=== PATIENT | female | born 1940 | race African-American/Black ===

== ENCOUNTER → 2016-09-06 | Outpatient (CLI) | payer MEDICARE, OTHER ==
[2015-06-27 21:10] VITALS: BP 213/99
[~2016-09-06] MED LIST: ASPI81TA9 PO; ATOR40TA59 PO; ENOX100D SQ; Enoxaparin Sodium SQ; HYDR-971 PO; ONDA4TAB10 SL; WARF1TAB PO; WARF5TAB PO
--- NOTE | 2016-09-06 13:08 | RAD ---
CT scan of the chest without contrast 09/06/2016 Clinical history: History of lung nodule. Technique: Unenhanced, contiguous, 3 mm axial sections were obtained through the chest and upper abdomen. One or more of the following individualized dose reduction techniques were utilized for this study: 1. Automated exposure control. 2. Adjustment of the mA and/or kV according to patient size. 3. Use of iterative reconstruction technique. Findings: Comparison study is dated 09/08/2015. Moderate atherosclerotic calcification of the thoracic aorta and its branches is noted. The thoracic aorta is tortuous but tapers normally. The heart is mildly enlarged. A 1.5 cm calcified lymph node node is seen in the AP window of the mediastinum. Small calcified hilar lymph nodes are seen. Mild emphysematous changes are seen involving both lungs. A 5 mm nodular opacity is seen involving the left lower lobe, unchanged. A 4 mm nodular opacity is seen involving the inferior aspect of the right upper lobe, unchanged. A 3 mm nodular opacity is seen involving the right middle lobe, unchanged. No new pulmonary nodule is seen. No area of consolidation is noted. No pleural effusion or pneumothorax is seen. Images through the upper abdomen demonstrate a 1.3 cm low-attenuation lesion involving the superior pole of the left kidney. This likely represents a cyst. Atherosclerotic calcification of the abdominal aorta is seen. Scattered diverticula are seen involving the colon. Impression: Stable CT appearance of the small nodules involving both lungs. No new pulmonary nodule is seen.
== END | disposition home or self-care (01) ==
LOC: CT 08:04
PROVIDERS: ATTEND Internal Medicine Pulmonary Disease
DX: R91.8 Other nonspecific abnormal finding of lung field (principal)
CPT/HCPCS: 71250

== ENCOUNTER → 2016-09-27 | Outpatient (CLI) | payer MEDICARE, OTHER ==
[2015-06-27 21:10] VITALS: BP 213/99
--- NOTE | 2016-09-27 17:07 | RAD ---
DATE: 09/27/2016 EXAM: MAMMO JONATHON SCREENING BILATERAL HISTORY: Routine screening COMPARISON: 09/26/2015 This study was interpreted with the benefit of Computerized Aided Detection (CAD). FINDINGS: 2-D and 3-D tomosynthesis imaging was performed in CC and MLO projections. The breasts are primarily fatty replaced. No new or enlarging breast densities are seen. Benign type calcifications are present. No suspicious microcalcifications have developed. IMPRESSION: Stable mammograms without evidence of malignancy. BI-RADS CATEGORY: 2 BENIGN FINDING(S) RECOMMENDED FOLLOW-UP: 12M 12 MONTH FOLLOW-UP PQRS compliance statement: Patient information was entered into a reminder system with a target due date for the next mammogram. Mammography is a sensitive method for finding small breast cancers, but it does not detect them all and is not a substitute for careful clinical examination. A negative mammogram does not negate a clinically suspicious finding and should not result in delay in biopsying a clinically suspicious abnormality. "Our facility is accredited by the [employer] Mammography [employer]."
== END | disposition home or self-care (01) ==
LOC: MAMMO 13:38
PROVIDERS: ATTEND Physician Assistant
DX: Z12.31 Encounter for screening mammogram for malignant neoplasm of breast (principal)
CPT/HCPCS: 77063; G0202; 77067

== ENCOUNTER → 2017-09-28 | Outpatient (CLI) | payer MEDICARE, OTHER ==
[2015-06-27 21:10] VITALS: BP 213/99
[~2017-09-28] MED LIST changes: +ASPI-612 PO; -ASPI81TA9 PO; +WARF-78 PO; -WARF1TAB PO; +WARF1TAB74 PO; -WARF5TAB PO
--- NOTE | 2017-09-28 13:04 | RAD ---
DATE: 09/28/2017 EXAM: MAMMO JONATHON SCREENING BILATERAL HISTORY: Routine screening COMPARISON: 09/27/2016 This study was interpreted with the benefit of Computerized Aided Detection (CAD). The breast parenchyma shows scattered fibroglandular densities. Breast parenchyma level B. FINDINGS: 2-D and 3-D tomosynthesis imaging was performed in CC and MLO projections. No new or enlarging breast densities are seen. Benign type calcifications are present. No suspicious microcalcifications have developed. IMPRESSION: Stable mammograms without evidence of malignancy. BI-RADS CATEGORY: 2 BENIGN FINDING(S) RECOMMENDED FOLLOW-UP: 12M 12 MONTH FOLLOW-UP PQRS compliance statement: Patient information was entered into a reminder system with a target due date for the next mammogram. Mammography is a sensitive method for finding small breast cancers, but it does not detect them all and is not a substitute for careful clinical examination. A negative mammogram does not negate a clinically suspicious finding and should not result in delay in biopsying a clinically suspicious abnormality. "Our facility is accredited by the [employer] Mammography [employer]."
== END | disposition home or self-care (01) ==
LOC: MAMMO 10:52
PROVIDERS: ATTEND Physician Assistant
DX: Z12.31 Encounter for screening mammogram for malignant neoplasm of breast (principal); E78.5 Hyperlipidemia, unspecified; E78.00 Pure hypercholesterolemia, unspecified
CPT/HCPCS: 77063; 77067

== ENCOUNTER 2018-01-29 05:42 | Emergency (ER) | payer MEDICARE, OTHER ==
[~2018-01-29] VITALS: Ht 167.6 cm; Wt 92.5 kg
--- NOTE | 2018-01-29 06:22 | PHYS DOC ---
Past History Past Medical History: CAD, DVT, High Cholesterol Past Surgical History: Cholecystectomy, Tonsillectomy Smoking: Non-smoker Alcohol Use: None Drug Use: None Adult General Chief Complaint Chief Complaint: BLOODY STOOL HPI HPI Patient is a 77-year-old -[place] female who presents to the emergency department for evaluation. She states that since 4 AM this morning, she has had 3 episodes of dark bloody stools. She states that when she came to the emergency department she did feel somewhat dizzy and lightheaded. She has not had any pain. She denies any shortness of breath or chest pain, numbness or focal weakness. She takes warfarin for prior history of DVT about 4 years ago, and states that she has not had any cardiac problems in the past, and has not had a pulmonary embolism. She is uncertain why she has been kept on warfarin the swelling. She denies any abdominal pain, nausea, or vomiting. There are no alleviating, or exacerbating factors to her symptoms. Review of Systems Review of Systems Constitutional: Denies fever or chills [] Eyes: Denies change in visual acuity, redness, or eye pain [] HENT: Denies nasal congestion or sore throat [] Respiratory: Denies cough or shortness of breath [] Cardiovascular: The patient denies any shortness of breath, chest pain, palpitations, or orthopnea[] GI: Denies abdominal pain, nausea, vomiting, or diarrhea [] : Denies dysuria or hematuria [] Musculoskeletal: Denies back pain or joint pain [] Integument: Denies rash or skin lesions [] Neurologic: Denies headache, focal weakness or sensory changes [] Endocrine: Denies polyuria or polydipsia [] All other systems were reviewed and found to be within normal limits, except as documented in this note. Allergies Allergies Allergies Coded Allergies Type Severity Reaction Last Updated Verified I S O L A T I O N *CONTACT* Allergy Unknown 03/19/15 No NKMA Allergy Unknown 03/19/15 No Physical Exam Physical Exam PHYSICAL EXAM: CONSTITUTIONAL: Well developed, well nourished HEAD: normocephalic, atraumatic EENT: PERRL, EOMI. Conjunctivae appear mildly pale, sclerae non-icteric; moist mucous membranes. NECK: Supple, non-tender; no meningismus. LUNGS: Lungs CTA, breathing even and unlabored. Normal air movement. HEART: Irregularly irregular rhythm, there is a soft systolic murmur. CHEST: No deformity; non-tender ABDOMEN: The abdomen is soft, and non-tender, no masses or bruits. EXTREM: Normal ROM; no deformity, no calf tenderness. Normal pulses palpable in all extremities. There is no pedal edema. SKIN: No rash; no diaphoresis NEURO: Alert; normal speech and cognition; CN's grossly intact; strength grossly intact without focal deficit. BACK: No CVA TTP. RECTAL EXAM: There is maroon stool present on rectal exam. Current Patient Data Lab Results Laboratory Tests Test 01/29/18 06:20 01/29/18 06:27 Stool Occult Blood Positive White Blood Count 7.6 x10^3/uL Red Blood Count 4.73 x10^6/uL Hemoglobin 12.2 g/dL Hematocrit 38.0 % Mean Corpuscular Volume 80 fL Mean Corpuscular Hemoglobin 26 pg Mean Corpuscular Hemoglobin Concent 32 g/dL Red Cell Distribution Width 16.1 % Platelet Count 186 x10^3/uL Neutrophils (%) (Auto) 64 % Lymphocytes (%) (Auto) 27 % Monocytes (%) (Auto) 7 % Eosinophils (%) (Auto) 1 % Basophils (%) (Auto) 1 % Neutrophils # (Auto) 4.9 x10^3uL Lymphocytes # (Auto) 2.1 x10^3/uL Monocytes # (Auto) 0.5 x10^3/uL Eosinophils # (Auto) 0.1 x10^3/uL Basophils # (Auto) 0.1 x10^3/uL Prothrombin Time 25.8 SEC Prothromb Time International Ratio 2.7 Activated Partial Thromboplast Time 35 SEC Sodium Level 142 mmol/L Potassium Level 3.9 mmol/L Chloride Level 108 mmol/L Carbon Dioxide Level 25 mmol/L Anion Gap 9 Blood Urea Nitrogen 19 mg/dL Creatinine 1.1 mg/dL Estimated GFR (Cockcroft-Gault) 58.1 Glucose Level 119 mg/dL Calcium Level 8.7 mg/dL Current Medications Medications (Trade) Dose Ordered Sig/Kentrell Route PRN Reason Start Time Stop Time Status Last Admin Dose Admin Sodium Chloride 1,000 ml @ 100 mls/hr Q10H IV 01/29/18 06:30 01/29/18 16:29 Pantoprazole Sodium 80 mg/ Sodium Chloride 100 ml @ 10 mls/hr 1X ONCE IV 01/29/18 07:00 01/29/18 16:59 Phytonadione 5 mg/ Sodium Chloride 50.5 ml @ 101 mls/hr 1X ONCE IV 01/29/18 07:30 01/29/18 07:59 UNV Phytonadione 5 mg/ Sodium Chloride 50.5 ml @ 101 mls/hr 1X ONCE IV 01/29/18 07:30 01/29/18 07:59 UNV EKG EKG [Normal sinus rhythm a rate of 62 bpm with occasional APCs, normal axis, normal intervals. There are no acute ischemic ST/T changes.] Radiology/Procedures Radiology/Procedures [] Course & Med Decision Making Course & Med Decision Making * Pertinent Labs and Imaging studies reviewed. (See chart for details) [7:15 AM: The patient's condition remained stable. There is no GI available at this facility, the patient be transferred to [facility]. Dr. Beckham, hospitalist waste minimization technician, has been paged.] 7:25 AM: The patient has been accepted. EMS is available to transport the patient. Due to the delay in administering FFP, the patient will be given vitamin K at this facility, with further reversal of her warfarin taking place after transfer to definitive care. Dragon Disclaimer Dragon Disclaimer This electronic medical record was generated, in whole or in part, using a voice recognition dictation system. Departure Departure: Impression: Primary Impression: GI bleed Additional Impression: Anticoagulated Disposition: 02 XFER [facility] (R [facility]) Condition: STABLE Referrals: LUIS ENRIQUE MAR (PCP) Problem Qualifiers REAGAN YANES MD Jan 29, 2018 06:22
[2018-01-29] MEDS ORDERED: IV NORMAL SALINE 1,000ML 1,000 ML IV SCH (06:30)
--- NOTE | 2018-01-29 06:41 | EKG ---
[address] [address] Test Date: 2018-01-29 Test Time: 06:40:09 Pat Name: YOLANDA DEL CASTILLO Department: Room: Gender: F Steel Tier: : 1940 Requested By: REAGAN YANES Order Number: [id number] Reading MD: Carlito Mendez MD Measurements Intervals [place] Rate: 62 P: 49 [place]: 146 QRS: 10 QRSD: 80 T: 21 QT: 430 QTc: 439 Interpretive Statements SINUS RHYTHM ATRIAL PREMATURE COMPLEX(ES) Electronically Signed On 01-31-2018 12:08:08 CDT by Carlito Mendez MD
[2018-01-29 06:50] LABS: BASO # 0.1 x10^3/uL (0.0-0.2); BASO % 1 % (0-3); EOS # 0.1 x10^3/uL (0.0-0.7); EOS % 1 % (0-3); HEMOGLOBIN 12.2 g/dL (12.0-15.5); LYMPH # 2.1 x10^3/uL (1.0-4.8); LYMPH % 27 % (24-48); MEAN CORPUSCULAR HEMOGLOBIN 26 pg (25-35); MEAN CORPUSCULAR HGB CONC 32 g/dL (31-37); MEAN CORPUSCULAR VOLUME 80 fL (79-100); MONO # 0.5 x10^3/uL (0.0-1.1); MONO % 7 % (0-9); NEUT # 4.9 x10^3uL (1.8-7.7); NEUT % 64 % (31-73); PLATELET COUNT 186 x10^3/uL (140-400); RED BLOOD COUNT 4.73 x10^6/uL (3.50-5.40); RED CELL DISTRIBUTION WIDTH 16.1 % (11.5-14.5); WHITE BLOOD COUNT 7.6 x10^3/uL (4.0-11.0)
[2018-01-29 06:51] LABS: FECAL OB PT POSITIVE (NEG)
[2018-01-29 06:57] LABS: CALCIUM 8.7 mg/dL (8.5-10.1); CREATININE 1.1 mg/dL (0.6-1.0); GFR 58.1; POTASSIUM 3.9 mmol/L (3.5-5.1)
[2018-01-29] MEDS ORDERED: PANTOPRAZOLE IV 80 MG in IV NORMAL SALINE 100ML 100 ML IV ONE (07:00)
[2018-01-29] MEDS ORDERED: ASPI325T8 PO (07:30)
[2018-01-29] MEDS ORDERED: [UNRECOGNIZED DRUG - OTHER] IV ONE (07:30)
[2018-01-29] MEDS ORDERED: TRAM50TA PO (07:30)
[2018-01-29] MEDS ORDERED: NORMAL SALINE IV ONE (07:30)
[2018-01-29] MEDS ORDERED: PHYTONADIONE for IVPB 5 MG in IV NORMAL SALINE 50ML 50 ML IV ONE (07:30)
[2018-01-29] MEDS ORDERED: PANTOPRAZOLE IV 40 MG VIAL. ONE (07:38)
[2018-01-29] MEDS ORDERED: IV NORMAL SALINE 100ML 100 ML ONE (07:39)
[2018-01-29 07:48] VITALS: BP 148/93
== END 2018-01-29 08:00 | disposition short-term general hospital (02) ==
LOC: ER 05:42
DX: K92.2 Gastrointestinal hemorrhage, unspecified (principal); Z79.01 Long term (current) use of anticoagulants; I25.10 Atherosclerotic heart disease of native coronary artery without angina pectoris; E78.00 Pure hypercholesterolemia, unspecified; Z86.718 Personal history of other venous thrombosis and embolism; Z90.49 Acquired absence of other specified parts of digestive tract; Z91.041 Radiographic dye allergy status
CPT/HCPCS: 36415; 80048; 82274; 85025; 85610; 85730; 86850; 86900; 86901; 93005; 96365; 96375; 99285; C9113; J3430; J7030

== ENCOUNTER 2018-07-07 18:08 | Emergency (ER) | payer MEDICARE, OTHER ==
[~2018-07-07] VITALS: Ht 170.2 cm; Wt 95.7 kg
[~2018-07-07 18:08] MED LIST changes: +ASPI325T8 PO; +HYDR-3165 PO; -HYDR-971 PO; +TRAM50TA PO
[2018-07-07] MEDS ORDERED: 0.9 % SODIUM CHLORIDE 10 ML DISP.SYRIN. IV PRN (18:30)
--- NOTE | 2018-07-07 18:34 | PHYS DOC ---
Past History Past Medical History: CAD, DVT, GI Bleed, High Cholesterol Past Surgical History: Cholecystectomy, Tonsillectomy Smoking: Non-smoker Alcohol Use: None Drug Use: None Adult General Chief Complaint Chief Complaint: LOWER EXTREMITY SWELLING HPI HPI Patient is a 78 year old female who presents with complaint of bilateral lower shimmery swelling. Patient states her symptoms have been worsening over the past week. Denies any history of similar symptoms. Patient states that she did not come to the emergency department as the weather has been bad. Denies any associated chest pain but does admit to shortness of breath with exertion. Patient has had history of DVT and recently was admitted at [facility] for treatment of GI bleed in January 2018. At that time she was taken off blood thinners. Currently not on any anticoagulation. Denies any associated fever. Has not taken any medications for her symptoms. Currently not on any water diuretics. Review of Systems Review of Systems Constitutional: Denies fever or chills [] Eyes: Denies change in visual acuity, redness, or eye pain [] HENT: Denies nasal congestion or sore throat [] Respiratory: Dyspnea on exertion, denies cough[] Cardiovascular: Dyspnea on exertion, lower extremity edema, denies chest pain or orthopnea[] GI: Denies abdominal pain, nausea, vomiting, bloody stools or diarrhea [] : Denies dysuria or hematuria [] Musculoskeletal: Denies back pain or joint pain [] Integument: Denies rash or skin lesions [] Neurologic: Denies headache, focal weakness or sensory changes [] All other systems were reviewed and found to be within normal limits, except as documented in this note. Current Medications Current Medications Current Medications Medications (Trade) Dose Ordered Sig/Kentrell Start Time Stop Time Status Last Admin Dose Admin Sodium Chloride (Normal Saline Flush) 10 ml QSHIFT PRN 07/07/18 18:30 UNV Allergies Allergies Allergies Coded Allergies Type Severity Reaction Last Updated Verified I S O L A T I O N *CONTACT* Allergy Unknown 03/19/15 No NKMA Allergy Unknown 03/19/15 No Physical Exam Physical Exam Constitutional: Alert, afebrile, no acute distress. [] HENT: Normocephalic, atraumatic, bilateral external ears normal, oropharynx moist, no oral exudates, nose normal. [] Eyes: PERRLA, EOMI, conjunctiva normal, no discharge. [] Neck: Normal range of motion, no tenderness, supple, no stridor. [] Cardiovascular: Normal rate, irregular rhythm, grade 2/6 systolic ejection murmur heard best along left sternal border. [] Lungs & Thorax: Bilateral breath sounds clear to auscultation [] Abdomen: Bowel sounds normal, soft, no tenderness, no masses, no pulsatile masses. [] Skin: Warm, dry, no erythema, no rash. [] Back: No tenderness, no CVA tenderness. [] Extremities: No tenderness, no cyanosis, no clubbing, ROM intact, 2+ pitting edema in the bilateral lower extremities extending just inferior to knees bilaterally. [] Neurologic: Alert and oriented X 3, normal motor function, normal sensory function, no focal deficits noted. [] Current Patient Data Vital Signs Vital Signs Date Time Temp Pulse Resp B/P (MAP) Pulse Ox O2 Delivery O2 Flow Rate FiO2 07/07/18 18:10 97.7 92 20 97 Room Air EKG EKG Interpreted by me: Heart rate 69, sinus rhythm, normal intervals, normal axis, occasional PVCs, no acute ST elevations or depressions[] Radiology/Procedures Radiology/Procedures One view AP chest x-ray interpreted by me: No infiltrate, no effusions, normal cardiac silhouette [address] [address] IMAGING REPORT Signed PATIENT: YOLANDA DEL CASTILLO ACCOUNT: [id number] : 1940 LOCATION: ER AGE: 78 SEX: F EXAM STATUS: REG ER ORD. PHYSICIAN: COLEMAN SMALLWOOD MD REASON: bilateral lower extremity edema, hx of dvt PROCEDURE: VENOUS LOWER EXT BILATERAL Bilateral lower extremity venous Doppler. HISTORY: Bilateral lower extremity edema, history of DVT Real-time imaging, color flow imaging and Doppler with augmentation were utilized to evaluate the veins of the lower extremities. The common femoral vein is incompletely compressible with intraluminal thrombus consistent with venous thrombosis. There is thrombus throughout the right lower extremity. The femoral vein, popliteal vein, deep femoral vein are all noncompressible without flow. Calf veins also show enlargement without flow and without compression consistent with venous thrombosis. The left common femoral vein, femoral and deep femoral veins were all compressible and have flow with color imaging on the left side. The popliteal vein on the left is incompletely compressible with partial venous thrombosis. There is still flow with color imaging. Calf veins have flow with color imaging on the left. IMPRESSION: 1. Extensive deep venous thrombosis right lower extremity. 2. Partial venous thrombosis left popliteal vein. Electronically signed by: Jose Eduardo Del Toro MD (07/07/2018 8:42 PM) [facility] DICTATED AND SIGNED BY: JOSE EDUARDO DEL TORO MD DATE: 07/07/182039 CC: COLEMAN SMALLWOOD MD; LUIS ENRIQUE MAR ~ [] Course & Med Decision Making Course & Med Decision Making Pertinent Labs and Imaging studies reviewed. (See chart for details) Patient found to have a panic was a thrombus in the right lower extremity starting at the common femoral vein and extending through to the lower leg and calf veins. Given patient's recent history of GI bleeding, initiation of blood thinner therapy carries high risk of rebleeding. The patient's condition may benefit from interventional radiology evaluation and placement of IVC filter. This is not available at [facility]. After speaking with the patient, we have agreed to transfer patient to [facility] for further evaluation and treatment. I spoke with Dr. Hooper, hospitalist, who agreed with plan of care and is accepting care of patient for transfer. Spoke with patient regarding plan of care and she is in agreement at time of disposition.[] Dragon Disclaimer Dragon Disclaimer This electronic medical record was generated, in whole or in part, using a voice recognition dictation system. Departure Departure: Impression: Primary Impression: Lower leg DVT (deep venous thromboembolism), acute Additional Impression: History of GI bleed Disposition: XFER [facility] Condition: STABLE Referrals: LUIS ENRIQUE MAR (PCP) Problem Qualifiers Primary Impression: Lower leg DVT (deep venous thromboembolism), acute Laterality: right Qualified Codes: I82.4Z1 - Acute embolism and thrombosis of unspecified deep veins of right distal lower extremity COLEMAN SMALLWOOD MD Jul 07, 2018 18:34
[2018-07-07 19:10] LABS: BASO # 0.1 x10^3/uL (0.0-0.2); BASO % 1 % (0-3); EOS # 0.1 x10^3/uL (0.0-0.7); EOS % 2 % (0-3); HEMATOCRIT 37.3 % (36.0-47.0); HEMOGLOBIN 11.7 g/dL (12.0-15.5); LYMPH # 1.3 x10^3/uL (1.0-4.8); LYMPH % 20 % (24-48); MEAN CORPUSCULAR HEMOGLOBIN 23 pg (25-35); MEAN CORPUSCULAR HGB CONC 31 g/dL (31-37); MEAN CORPUSCULAR VOLUME 74 fL (79-100); MONO # 0.5 x10^3/uL (0.0-1.1); MONO % 8 % (0-9); NEUT # 4.2 x10^3uL (1.8-7.7); NEUT % 68 % (31-73); PLATELET COUNT 198 x10^3/uL (140-400); RED BLOOD COUNT 5.06 x10^6/uL (3.50-5.40); RED CELL DISTRIBUTION WIDTH 19.7 % (11.5-14.5); WHITE BLOOD COUNT 6.1 x10^3/uL (4.0-11.0)
[2018-07-07 19:36] LABS: ALBUMIN 3.4 g/dL (3.4-5.0); ALBUMIN/GLOBULIN RATIO 1.1 (1.0-1.7); CALCIUM 9.2 mg/dL (8.5-10.1); GFR 64.7; TOTAL BILIRUBIN 0.3 mg/dL (0.2-1.0); TOTAL PROTEIN 6.6 g/dL (6.4-8.2)
--- NOTE | 2018-07-07 20:47 | RAD ---
Bilateral lower extremity venous Doppler. HISTORY: Bilateral lower extremity edema, history of DVT Real-time imaging, color flow imaging and Doppler with augmentation were utilized to evaluate the veins of the lower extremities. The common femoral vein is incompletely compressible with intraluminal thrombus consistent with venous thrombosis. There is thrombus throughout the right lower extremity. The femoral vein, popliteal vein, deep femoral vein are all noncompressible without flow. Calf veins also show enlargement without flow and without compression consistent with venous thrombosis. The left common femoral vein, femoral and deep femoral veins were all compressible and have flow with color imaging on the left side. The popliteal vein on the left is incompletely compressible with partial venous thrombosis. There is still flow with color imaging. Calf veins have flow with color imaging on the left. IMPRESSION: 1. Extensive deep venous thrombosis right lower extremity. 2. Partial venous thrombosis left popliteal vein. Electronically signed by: Jose Eduardo Del Toro MD (07/07/2018 8:42 PM) [facility]
[2018-07-07 21:47] VITALS: BP 228/83
--- NOTE | 2018-07-08 06:15 | EKG ---
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
--- NOTE | 2018-07-09 07:39 | RAD ---
CHEST PA LATERAL CLINICAL INDICATION: Lower extremity swelling, dyspnea on exertion COMPARISON: None FINDINGS: Heart is normal in size. Lungs are clear. No pneumothorax or pleural effusion. Visualized bony thorax is within normal limits. Impression: No acute pulmonary process. Electronically signed by: Aram Collier DO (07/09/2018 7:35 AM) [facility]
== END 2018-07-07 21:52 | disposition short-term general hospital (02) ==
LOC: ER 18:08
DX: I82.4Z3 Acute embolism and thrombosis of unspecified deep veins of distal lower extremity, bilateral (principal); R06.09 Other forms of dyspnea; K92.2 Gastrointestinal hemorrhage, unspecified; I25.10 Atherosclerotic heart disease of native coronary artery without angina pectoris; E78.00 Pure hypercholesterolemia, unspecified; Z86.718 Personal history of other venous thrombosis and embolism; Z91.041 Radiographic dye allergy status
CPT/HCPCS: 36415; 71046; 80053; 82553; 83735; 83880; 84484; 85025; 93005; 93970; 99285-25

== ENCOUNTER → 2018-09-29 | Outpatient (CLI) | payer MEDICARE, OTHER ==
--- NOTE | 2018-09-29 12:23 | RAD ---
DATE: 09/29/2018 EXAM: MAMMO JONATHON SCREENING BILATERAL HISTORY: Routine screening COMPARISON: 09/28/2017 This study was interpreted with the benefit of Computerized Aided Detection (CAD). Breast Density: SCATTERED The breast parenchyma shows scattered fibroglandular densities. Breast parenchyma level B. FINDINGS: 2-D and 3-D tomosynthesis imaging was performed in CC and MLO projections. No new or enlarging breast densities are seen. Benign calcifications are present. No suspicious microcalcifications are evident. IMPRESSION: Stable mammograms without evidence of malignancy. BI-RADS CATEGORY: 2 BENIGN FINDING(S) RECOMMENDED FOLLOW-UP: 12M 12 MONTH FOLLOW-UP PQRS compliance statement: Patient information was entered into a reminder system with a target due date for the next mammogram. Mammography is a sensitive method for finding small breast cancers, but it does not detect them all and is not a substitute for careful clinical examination. A negative mammogram does not negate a clinically suspicious finding and should not result in delay in biopsying a clinically suspicious abnormality. "Our facility is accredited by the [employer] Mammography Program."
== END | disposition home or self-care (01) ==
LOC: MAMMO 10:34
PROVIDERS: ATTEND Physician Assistant
DX: Z12.31 Encounter for screening mammogram for malignant neoplasm of breast (principal); R92.1 Mammographic calcification found on diagnostic imaging of breast
CPT/HCPCS: 77063; 77067

== ENCOUNTER 2019-11-09 09:42 | Emergency (ER) | payer MEDICARE, OTHER ==
[~2019-11-09] VITALS: Ht 170.2 cm; Wt 92.5 kg
[~2019-11-09 09:42] MED LIST changes: -WARF-78 PO; +WARF1TAB2 PO; -WARF1TAB74 PO; +WARF5TAB2 PO
[2019-11-09] MEDS ORDERED: IV NORMAL SALINE 1,000ML 1,000 ML IV SCH (10:11)
[2019-11-09 10:53] LABS: BASO % 1 % (0-3); EOS # 0.1 x10^3/uL (0.0-0.7); EOS % 2 % (0-3); HEMATOCRIT 37.3 % (36.0-47.0); HEMOGLOBIN 11.8 g/dL (12.0-15.5); LYMPH # 1.3 x10^3/uL (1.0-4.8); LYMPH % 22 % (24-48); MEAN CORPUSCULAR HEMOGLOBIN 26 pg (25-35); MEAN CORPUSCULAR HGB CONC 32 g/dL (31-37); MEAN CORPUSCULAR VOLUME 81 fL (79-100); MONO # 0.5 x10^3/uL (0.0-1.1); MONO % 8 % (0-9); NEUT # 4.1 x10^3uL (1.8-7.7); NEUT % 68 % (31-73); PLATELET COUNT 194 x10^3/uL (140-400); RED BLOOD COUNT 4.62 x10^6/uL (3.50-5.40); RED CELL DISTRIBUTION WIDTH 16.1 % (11.5-14.5)
[2019-11-09 10:59] LABS: CALCIUM 8.8 mg/dL (8.5-10.1); CREATININE 0.9 mg/dL (0.6-1.0); GFR 72.9; POTASSIUM 4.3 mmol/L (3.5-5.1)
[2019-11-09 11:05] LABS: ALBUMIN 3.3 g/dL (3.4-5.0); TOTAL BILIRUBIN 0.3 mg/dL (0.2-1.0); TOTAL PROTEIN 6.5 g/dL (6.4-8.2)
[2019-11-09 11:08] LABS: BACTERIA,URINE MANY /HPF (0-FEW); BILIRUBIN,URINE NEG (NEG); CLARITY,URINE CLEAR; COLOR,URINE YELLOW; GLUCOSE,URINE NEG (NEG); NITRITE,URINE POS (NEG); RBC,URINE RARE /HPF (0-2); SQUAMOUS EPITHELIAL CELL,UR MOD /LPF; UROBILINOGEN,URINE 0.2 mg/dL (0.2 mg/dL); WBC,URINE OCC /HPF (0-4)
[2019-11-09] MEDS ORDERED: IOHEXOL 350 MG/ML 100 ML VIAL. IV ONE (11:45)
--- NOTE | 2019-11-09 12:31 | RAD ---
CT scan of the pelvis with contrast 11/09/2019 CLINICAL HISTORY: Vaginal bleeding. TECHNIQUE: After the intravenous administration of 75 cc of Omnipaque 350 only, contiguous, 5 mm axial sections were obtained through the pelvis. One or more of the following individualized dose reduction techniques were utilized for this study: 1. Automated exposure control. 2. Adjustment of the mA and/or kV according to patient size. 3. Use of iterative reconstruction technique. FINDINGS: Atherosclerotic calcification of the distal abdominal aorta and its branches is noted. The urinary bladder is distended with urine. The uterus is heterogeneous which likely reflects diffuse fibroid involvement. A 1.4 cm calcified fibroid is seen involving the anterior aspect of the lower uterine segment. No adnexal mass is seen. No free fluid is noted. Scattered diverticula are seen involving the sigmoid colon. No inflammatory changes are seen in the adjacent fat. An oval-shaped mass is seen within the deep subcutaneous fat of the right anterolateral abdominal wall anterior to the abdominal wall musculature. This measures 6.6 cm in greatest diameter. Its CT appearance is nonspecific. It could represent a seroma or possibly a fibroma. Multiple diverticula are seen involving the sigmoid colon. No inflammatory changes are seen in the adjacent fat. No free fluid is seen. No pelvic or inguinal lymphadenopathy is noted. Degenerative changes involving the lower lumbar spine along with both SI joints and both hips. IMPRESSION: Fibroid uterus. No acute abnormality is seen. Electronically signed by: Antoine Peterson MD (11/09/2019 12:28 PM) [id number]
--- NOTE | 2019-11-09 12:46 | PHYS DOC ---
Past History Past Medical History: CAD, DVT, GI Bleed, High Cholesterol Past Surgical History: Cholecystectomy, Tonsillectomy Smoking: Non-smoker Alcohol Use: None Drug Use: None General Adult EDM: Chief Complaint: VAGINAL BLEEDING HPI: HPI: 79 year female presents with history of intermittent vaginal bleeding that has been ongoing for "a long time...years". Patient reports typically will have a day where she has a few blood clots come out and then it self resolves. Reports she has not ever told her doctor about it. Reports her bleeding this episode has been more than normal and lasting a few days. Denies trauma. Denies other discharge. Denies fever/chills. Reports she take Xarelto. Reports she also has been following with Urology for a mass on her kidney. Reports she recently underwent CT imaging last week for her mass and has an appointment with her urologist on 11/19/19 to go over the results. Review of Systems: Review of Systems: Constitutional: Denies fever or chills Eyes: Denies change in visual acuity or eye pain HENT: Denies nasal congestion or sore throat Respiratory: Denies cough or shortness of breath Cardiovascular: Denies chest pain or palpitations GI: Denies abdominal pain, nausea, or vomiting /[facility]: Reports suprapubic pressure and vaginal bleeding/clots Musculoskeletal: Denies back pain or joint pain Integument: Denies rash or skin lesions Neurologic: Denies headache, focal weakness or sensory changes Complete systems were reviewed and found to be within normal limits, except as documented in this note. Current Medications: Current Meds: Current Medications Medications (Trade) Dose Ordered Sig/Kentrell Start Time Stop Time Status Last Admin Dose Admin Ceftriaxone Sodium 1 gm/ Sodium Chloride 50 ml @ 100 mls/hr 1X ONCE 11/09/19 12:45 11/09/19 13:14 UNV Iohexol (Omnipaque 350 Mg/ml) 75 ml 1X ONCE 11/09/19 11:45 11/09/19 11:57 DC 11/09/19 11:53 75 ML Sodium Chloride 1,000 ml @ 1,000 mls/hr Q1H 11/09/19 10:11 11/09/19 11:10 DC 11/09/19 10:49 1,000 MLS/HR Allergies: Allergies: Allergies Coded Allergies Type Severity Reaction Last Updated Verified I S O L A T I O N *CONTACT* Allergy Unknown 03/19/15 No NKMA Allergy Unknown 03/19/15 No Physical Exam: PE: Constitutional: Well developed, well nourished, no acute distress, non-toxic appearance HENT: Normocephalic, atraumatic Eyes: Conjunctiva normal, no discharge Neck: Normal range of motion, no tenderness, supple Lungs & Thorax: No respiratory distress, equal chest rise and fall Abdomen: Soft, no tenderness, no guarding/rebound tenderness/distention Skin: Warm, dry, no erythema 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, small amount of clotted blood noted in vaginal vault, no CMT Extremities: No tenderness, ROM intact, no edema Neurologic: Alert and oriented X 3, no focal deficits noted Psychologic: Affect normal, judgement normal Current Patient Data: Labs: Laboratory Tests Test 11/09/19 10:29 11/09/19 10:33 Urine Collection Type Unknown Urine Color Yellow Urine Clarity Clear Urine pH 5.0 Urine Specific [place] 1.025 Urine Protein Neg (NEG-TRACE) Urine Glucose (UA) Neg mg/dL (NEG) Urine Ketones (Stick) Neg mg/dL (NEG) Urine Blood Small (NEG) Urine Nitrite Pos (NEG) Urine Bilirubin Neg (NEG) Urine Urobilinogen Dipstick 0.2 mg/dL (0.2 mg/dL) Urine Leukocyte Esterase Neg (NEG) Urine RBC Rare /HPF (0-2) Urine WBC Occ /HPF (0-4) Urine Squamous Epithelial Cells Mod /LPF Urine Bacteria Many /HPF (0-FEW) White Blood Count 6.0 x10^3/uL (4.0-11.0) Red Blood Count 4.62 x10^6/uL (3.50-5.40) Hemoglobin 11.8 g/dL (12.0-15.5) L Hematocrit 37.3 % (36.0-47.0) Mean Corpuscular Volume 81 fL (79-100) Mean Corpuscular Hemoglobin 26 pg (25-35) Mean Corpuscular Hemoglobin Concent 32 g/dL (31-37) Red Cell Distribution Width 16.1 % (11.5-14.5) H Platelet Count 194 x10^3/uL (140-400) Neutrophils (%) (Auto) 68 % (31-73) Lymphocytes (%) (Auto) 22 % (24-48) L Monocytes (%) (Auto) 8 % (0-9) Eosinophils (%) (Auto) 2 % (0-3) Basophils (%) (Auto) 1 % (0-3) Neutrophils # (Auto) 4.1 x10^3uL (1.8-7.7) Lymphocytes # (Auto) 1.3 x10^3/uL (1.0-4.8) Monocytes # (Auto) 0.5 x10^3/uL (0.0-1.1) Eosinophils # (Auto) 0.1 x10^3/uL (0.0-0.7) Basophils # (Auto) 0.0 x10^3/uL (0.0-0.2) Prothrombin Time 10.2 SEC (9.4-11.4) Prothrombin Time INR 1.0 (0.9-1.1) Activated Partial Thromboplast Time 28 SEC (23-33) Sodium Level 144 mmol/L (136-145) Potassium Level 4.3 mmol/L (3.5-5.1) Chloride Level 109 mmol/L (98-107) H Carbon Dioxide Level 26 mmol/L (21-32) Anion Gap 9 (6-14) Blood Urea Nitrogen 20 mg/dL (7-20) Creatinine 0.9 mg/dL (0.6-1.0) Estimated GFR (Cockcroft-Gault) 72.9 BUN/Creatinine Ratio 22 (6-20) H Glucose Level 99 mg/dL (70-99) Calcium Level 8.8 mg/dL (8.5-10.1) Total Bilirubin 0.3 mg/dL (0.2-1.0) Aspartate Amino Transferase (AST) 23 U/L (15-37) Alanine Aminotransferase (ALT) 16 U/L (14-59) Alkaline Phosphatase 69 U/L (46-116) Total Protein 6.5 g/dL (6.4-8.2) Albumin 3.3 g/dL (3.4-5.0) L Albumin/Globulin Ratio 1.0 (1.0-1.7) Vital Signs: Vital Signs Date Time Temp Pulse Resp B/P (MAP) Pulse Ox O2 Delivery O2 Flow Rate FiO2 11/09/19 09:58 98.7 67 16 146/37 (73) 98 Room Air EKG: EKG: [] Radiology/Procedures: Radiology/Procedures: PROCEDURE: CT PELVIS W/CONTRAST CT scan of the pelvis with contrast 11/09/2019 CLINICAL HISTORY: Vaginal bleeding. TECHNIQUE: After the intravenous administration of 75 cc of Omnipaque 350 only, contiguous, 5 mm axial sections were obtained through the pelvis. One or more of the following individualized dose reduction techniques were utilized for this study: 1. Automated exposure control. 2. Adjustment of the mA and/or kV according to patient size. 3. Use of iterative reconstruction technique. FINDINGS: Atherosclerotic calcification of the distal abdominal aorta and its branches is noted. The urinary bladder is distended with urine. The uterus is heterogeneous which likely reflects diffuse fibroid involvement. A 1.4 cm calcified fibroid is seen involving the anterior aspect of the lower uterine segment. No adnexal mass is seen. No free fluid is noted. Scattered diverticula are seen involving the sigmoid colon. No inflammatory changes are seen in the adjacent fat. An oval-shaped mass is seen within the deep subcutaneous fat of the right anterolateral abdominal wall anterior to the abdominal wall musculature. This measures 6.6 cm in greatest diameter. Its CT appearance is nonspecific. It could represent a seroma or possibly a fibroma. Multiple diverticula are seen involving the sigmoid colon. No inflammatory changes are seen in the adjacent fat. No free fluid is seen. No pelvic or inguinal lymphadenopathy is noted. Degenerative changes involving the lower lumbar spine along with both SI joints and both hips. IMPRESSION: Fibroid uterus. No acute abnormality is seen. Electronically signed by: Antoine Peterson MD (11/09/2019 12:28 PM) [id number] Course & Med Decision Making: Course & Med Decision Making Pertinent Labs and Imaging studies reviewed. (See chart for details) Elderly patient presents with postmenopausal bleeding. Reports has been ongoing intermittently for several years but this episode was worse than normal. Patient currently on Xarelto and with history of known kidney mass for which she recently had repeat imaging this last week. Discussed case with RN for patient's urologist- Dr. Robles. Reports patient has mass that has been stable they are following. Reports patient has had CT abd (without pelvis) with and without contrast yearly since 2016. Mass has remained stable so no biopsy was ever performed. RN confirms that recent imaging does not include pelvis and no notation regarding uterus/cervix/ovaries was documented. Pelvic exam performed. Small clot noted in vaginal vault which was removed. NO significant active bleeding noted. No signs of infection. Wet mount negative. Labs obtained and posted to chart. H/H stable. UA with signs of infection. Empiric antibiotic initiated. CT pelvis with findings consistent for fibroid uterus. Patient stable for discharge with outpatient follow-up with PCP/[facility]NEY[facility]ILLWR[facility]. [facility] referral provided. Discussed findings and plan with patient, who acknowledges understanding and agreement. Varsha Disclaimer: Varsha Disclaimer: This electronic medical record was generated, in whole or in part, using a voice recognition dictation system. Departure Departure: Impression: Primary Impression: Abnormal vaginal bleeding in postmenopausal patient Additional Impressions: Uterine fibroid Qualified Codes: D25.9 - Leiomyoma of uterus, unspecified Urinary tract infection Qualified Codes: N30.00 - Acute cystitis without hematuria Disposition: HOME/RESIDENCE PRIOR TO ADM Condition: STABLE Referrals: LUIS ENRIQUE MAR (PCP) Patient Instructions: Abnormal Uterine Bleeding, Fibroids, [id number], Urinary Tract Infection, [id number] Scripts Cephalexin (KEFLEX) 500 Mg Capsule 1 CAP PO TID for UTI for 7 Days, #21 CAP 0 Refills Prov: ANGIE VILLEDA DO 11/09/19 Justification of Admission: Justification of Admission: Justification of Admission Dx: N/A ANGIE VILLEDA DO Nov 09, 2019 12:46
[2019-11-09] MEDS ORDERED: cefTRIAXone SODIUM 1 GM VIAL ONE (12:54)
[2019-11-09] MEDS ORDERED: IV NORMAL SALINE 50ML 50 ML ONE (12:54)
[2019-11-09 13:02] VITALS: BP 159/98
[2019-11-09] MEDS ORDERED: CEPH-264 PO (14:14)
[2019-11-12 18:07] LABS: CHLAMYDIA PROBE Negative (Negative)
== END 2019-11-09 13:53 | disposition home or self-care (01) ==
LOC: ER 09:42
DX: D25.9 Leiomyoma of uterus, unspecified (principal); N30.00 Acute cystitis without hematuria; N93.8 Other specified abnormal uterine and vaginal bleeding; N95.0 Postmenopausal bleeding; I25.10 Atherosclerotic heart disease of native coronary artery without angina pectoris; E78.00 Pure hypercholesterolemia, unspecified; Z86.718 Personal history of other venous thrombosis and embolism; Z90.49 Acquired absence of other specified parts of digestive tract; Z91.041 Radiographic dye allergy status
CPT/HCPCS: 72193; 80053; 81001; 85025; 85610; 85730; 87086; 87491; 87591; 96361; 96365; 99285; J0696; Q0111; Q9967; 36415; J7030

== ENCOUNTER → 2019-11-20 | Outpatient (CLI) | payer MEDICARE, OTHER ==
[2019-11-09 13:02] VITALS: BP 159/98
[~2019-11-20] MED LIST changes: +CEPH-264 PO
--- NOTE | 2019-11-21 12:25 | RAD ---
DATE: 11/20/2019 2:11 PM EXAM: MAMMO JONATHON SCREENING BILATERAL HISTORY: Screening COMPARISON: 09/29/2018, 09/28/2017 Bilateral CC and MLO views of the breasts were performed. Bilateral breast tomosynthesis was performed in CC and MLO projections. This study was interpreted with the benefit of Computerized Aided Detection (CAD). FINDINGS: Breast Density: FATTY The Breast Parenchyma is primarily fatty replaced. Breast parenchyma level density A. No suspicious masses, microcalcifications or architectural distortion is present to suggest malignancy in either breast. The visualized axillae are unremarkable. IMPRESSION: No mammographic evidence of malignancy. BI-RADS CATEGORY: 1 NEGATIVE RECOMMENDED FOLLOW-UP: 12M 12 MONTH FOLLOW-UP Annual screening mammography is recommended, unless clinically indicated sooner based on symptoms or change in physical exam. PQRS compliance statement: Patient information was entered into a reminder system with a target due date 11/20/2020 for the next mammogram. Mammography is a sensitive method for finding small breast cancers, but it does not detect them all and is not a substitute for careful clinical examination. A negative mammogram does not negate a clinically suspicious finding and should not result in delay in biopsying a clinically suspicious abnormality. "Our facility is accredited by the [employer] Mammography Program."
== END | disposition home or self-care (01) ==
LOC: MAMMO 13:23
PROVIDERS: ATTEND Physician Assistant
DX: Z12.31 Encounter for screening mammogram for malignant neoplasm of breast (principal)
CPT/HCPCS: 77063; 77067

== ENCOUNTER → 2019-11-21 | Outpatient (CLI) | payer MEDICARE, OTHER ==
[2019-11-09 13:02] VITALS: BP 159/98
--- NOTE | 2019-11-21 13:13 | RAD ---
EXAM: DUAL ENERGY X-RAY ABSORPTIOMETRY (DEXA). HISTORY: Postmenopausal screening. FINDINGS: The lowest measured T-score is -1.0 in the right femoral neck, based on a bone mineral density of 0.895 g/cm^2. Refer to the worksheets for full detail. No comparison examinations are available. IMPRESSION: Normal. Bone mineral density yields a T-score of -1.0 or greater. Fracture risk is low. FRAX was not calculated. METHODOLOGY: Dual energy x-ray absorptiometry was performed to measure bone mineral density. The following analysis is based on the 2019 Official Positions of the International Society for Clinical Densitometry: Measurements of the hips and the average of L1-L4 are preferred. When the spine and/or hip cannot be feasibly measured or interpreted, or in the setting of hyperparathyroidism, distal radial bone mineral density may be measured. The lumbar spine T-score is based on the average bone mineral density of L1-L4. In the setting of artifact or anatomic abnormality, some lumbar levels may be excluded, and the remaining levels used for calculation. A single lumbar level is not used for diagnosis, and if only a single level is available for assessment, another anatomic site will be used to assign a diagnosis. The hip T-score is based on the bone mineral density measurement of the femoral neck or total proximal femur of either side, whichever is lowest. Bilateral mean values are not used for diagnosis. The forearm T-score is derived from 33% of the distal radius of the nondominant forearm. For postmenopausal and perimenopausal women, and men age 50 or older, of all ethnic groups, T-scores are calculated through comparison of the current measurement with the NHANES III database standard for females aged 20-29 years. The lowest T-score of the evaluated anatomic sites is used to assign a diagnosis based on the World Health Organization densitometric classification. In premenopausal females and males younger than age 50, a Z-score is calculated based on population specific reference data for patient sex and self-reported ethnicity. Electronically signed by: Jazzmine Tripathi MD (11/21/2019 1:10 PM) [id number]
== END | disposition home or self-care (01) ==
LOC: DXRAD 11:25
PROVIDERS: ATTEND Physician Assistant
DX: M85.88 Other specified disorders of bone density and structure, other site (principal)
CPT/HCPCS: 77081

== ENCOUNTER 2020-01-10 21:56 | Emergency (ER) | payer MEDICARE, OTHER ==
[~2020-01-10] VITALS: Ht 170.2 cm; Wt 92.5 kg
[~2020-01-10 21:56] MED LIST changes: -ASPI-612 PO; +ASPI-889 PO
--- NOTE | 2020-01-10 22:32 | PHYS DOC ---
Past History Past Medical History: CAD, DVT, GI Bleed, High Cholesterol Past Surgical History: Cholecystectomy, Tonsillectomy Smoking: Non-smoker Alcohol Use: None Drug Use: None Adult General Chief Complaint Chief Complaint: RECTAL BLEED HPI HPI Patient is a 79-year-old female who presents for rectal bleeding. Onset was first noticed this morning when taking a bowel movement. She reports taking a bowel movement which was loose in nature and reports nearly all contents of evacuated bowel matter were dark red, bloody, with some clots apparent. This was painless with roughly 8 ounces of bloody fecal matter expelled. Patient went on about her day, continued to be asymptomatic and had separate episode later this evening of similar quantity prompting her to seek care at our ER for further management. Patient reports taking Xarelto in outpatient setting for history of blood clots. She reports recently being seen and evaluated at our facility October 2019 for fibroid bleeding, she was discharged but failed to follow-up in outpatient setting with [facility] [employer]. She does admit history of GI bleed in the past and reports going to [facility] often for this. Reports last colonoscopy was 1 year ago, denies any history of polyps, diverticula or other abnormal findings. Review of Systems Review of Systems Denies headache, lightheadedness, fever, chills, chest pain, shortness of breath, abdominal pain, urinary symptoms, vaginal bleeding or discharge, recent COVID-19 symptoms or contact Fourteen body systems of review of systems have been reviewed. See HPI for pertinent positives and negative responses, other hodges all other systems are negative, non-pertinent or non-contributory Allergies Allergies Allergies Coded Allergies Type Severity Reaction Last Updated Verified I S O L A T I O N *CONTACT* Allergy Unknown 03/19/15 No NKMA Allergy Unknown 03/19/15 No Physical Exam Physical Exam Constitutional: Well developed, well nourished, no acute distress, non-toxic appearance. HENT: Normocephalic, atraumatic, bilateral external ears normal, oropharynx moist, no oral exudates, nose normal. Eyes: PERRLA, EOMI, conjunctiva normal, no discharge. Neck: Normal range of motion, no tenderness, supple, no stridor. Cardiovascular: Heart rate regular, sinus rhythm, no murmurs rubs or gallops Lungs & Thorax: Bilateral breath sounds clear to auscultation Abdomen: Bowel sounds normal, soft, no tenderness, no masses, no pulsatile masses. Nonsurgical abdomen, no peritoneal signs : Rectal exam performed, non-concerning, x1 external hemorrhoid appreciated without any internal hemorrhoids or fissures. Guaiac positive. Pelvic exam also performed, non-concerning external examination, internal vaginal exam ination showed blood with several clots present in vaginal vault, no active/profound sites of bleeding identified, no trauma. Patient wearing depends with large amount of blood in genital area, unsure if true guaiac positive or positive result due to vaginal bleeding Skin: Warm, dry, no erythema, no rash. Back: No tenderness, no CVA tenderness. Extremities: No tenderness, no cyanosis, no clubbing, ROM intact, no edema. Neurologic: Alert and oriented X 3, grossly normal motor & sensory function, no focal deficits noted. Psychologic: Affect normal, judgement normal, mood normal. Current Patient Data Vital Signs Vital Signs Date Time Temp Pulse Resp B/P (MAP) Pulse Ox O2 Delivery O2 Flow Rate FiO2 01/10/20 23:07 98.4 94 20 128/85 (99) 99 Lab Results Laboratory Tests Test 01/10/20 22:15 01/10/20 22:21 White Blood Count 5.9 x10^3/uL Red Blood Count 4.23 x10^6/uL Hemoglobin 10.7 g/dL Hematocrit 34.3 % Mean Corpuscular Volume 81 fL Mean Corpuscular Hemoglobin 25 pg Mean Corpuscular Hemoglobin Concent 31 g/dL Red Cell Distribution Width 15.6 % Platelet Count 183 x10^3/uL Neutrophils (%) (Auto) 67 % Lymphocytes (%) (Auto) 23 % Monocytes (%) (Auto) 8 % Eosinophils (%) (Auto) 1 % Basophils (%) (Auto) 1 % Neutrophils # (Auto) 4.0 x10^3uL Lymphocytes # (Auto) 1.4 x10^3/uL Monocytes # (Auto) 0.5 x10^3/uL Eosinophils # (Auto) 0.1 x10^3/uL Basophils # (Auto) 0.0 x10^3/uL Sodium Level 142 mmol/L Potassium Level 3.6 mmol/L Chloride Level 107 mmol/L Carbon Dioxide Level 27 mmol/L Anion Gap 8 Blood Urea Nitrogen 18 mg/dL Creatinine 1.4 mg/dL Estimated GFR (Cockcroft-Gault) 43.8 BUN/Creatinine Ratio 13 Glucose Level 128 mg/dL Calcium Level 8.2 mg/dL Total Bilirubin 0.3 mg/dL Aspartate Amino Transf (AST/SGOT) 25 U/L Alanine Aminotransferase (ALT/SGPT) 17 U/L Alkaline Phosphatase 74 U/L Total Protein 6.6 g/dL Albumin 3.1 g/dL Albumin/Globulin Ratio 0.9 Stool Occult Blood Positive Current Medications Medications (Trade) Dose Ordered Sig/Kentrell Route PRN Reason Start Time Stop Time Status Last Admin Dose Admin Sodium Chloride 1,000 ml @ 1,000 mls/hr 1X ONCE IV 01/10/20 23:30 01/11/20 00:29 01/10/20 23:43 EKG EKG EKG ordered and interpreted by myself at 2232 hrs. as normal sinus rhythm at 73 bpm, unremarkable intervals, no axis deviation, no ischemic findings, no STEMI Radiology/Procedures Radiology/Procedures [] Course & Med Decision Making Course & Med Decision Making Ambulatory patient seen and evaluated by myself on immediate ER arrival Airway patent, breathing unlabored, vital signs obtained and grossly unremarkable, IV access also obtained Comprehensive history and physical exam obtained with subsequent ordering of pertinent laboratory and diagnostic studies. History somewhat limited by patient's lack of own medical history and dementia History concerning for significant blood loss in area inpatient with Xarelto use Vaginal bleeding confirmed source with recent CTAP obtained 11/17/2019 showing uterine fibroids. Unclear if true guaiac positive and GI bleed and high risk patient given significant blood pooled in her briefs Discussed concerning nature of presenting story and high risk of potential decompensation if discharged home, patient agreeable to admission for further medical management and diagnostic work-up On-call hospitalist, Dr. Adorno, was contacted and case discussed. He agreed need for admission to [facility] where patient could be further manag ed medically with access to GI and [facility] OF [employer] specialties as indicated All questions and concerns addressed with patient prior to departure to [facility] for continued inpatient management and medical care under Dr. Kyree Maddox Disclaimer Varsha Disclaimer This electronic medical record was generated, in whole or in part, using a voice recognition dictation system. Departure Departure: Impression: Primary Impression: Vaginal bleeding Additional Impressions: History of uterine fibroid History of GI bleed Anticoagulant long-term use Acute kidney injury Disposition: 09 ADMITTED INPATIENT (At [facility]) Admitting Physician: Nabeel Adorno (At [facility]) Condition: STABLE Referrals: LUIS ENRIQUE MAR (PCP) Justification of Admission: Justification of Admission: Justification of Admission Dx: Yes (Vaginal bleeding and high risk patient on anticoagulation) Problem Qualifiers NANCY PLASCENCIA DO Jan 10, 2020 22:32
[2020-01-10 22:59] LABS: BASO % 1 % (0-3); EOS # 0.1 x10^3/uL (0.0-0.7); EOS % 1 % (0-3); HEMATOCRIT 34.3 % (36.0-47.0); HEMOGLOBIN 10.7 g/dL (12.0-15.5); LYMPH # 1.4 x10^3/uL (1.0-4.8); LYMPH % 23 % (24-48); MEAN CORPUSCULAR HEMOGLOBIN 25 pg (25-35); MEAN CORPUSCULAR HGB CONC 31 g/dL (31-37); MEAN CORPUSCULAR VOLUME 81 fL (79-100); MONO # 0.5 x10^3/uL (0.0-1.1); MONO % 8 % (0-9); NEUT % 67 % (31-73); PLATELET COUNT 183 x10^3/uL (140-400); RED BLOOD COUNT 4.23 x10^6/uL (3.50-5.40); RED CELL DISTRIBUTION WIDTH 15.6 % (11.5-14.5); WHITE BLOOD COUNT 5.9 x10^3/uL (4.0-11.0)
[2020-01-10 23:07] LABS: CALCIUM 8.2 mg/dL (8.5-10.1); CREATININE 1.4 mg/dL (0.6-1.0); GFR 43.8; POTASSIUM 3.6 mmol/L (3.5-5.1)
[2020-01-10 23:13] LABS: ALBUMIN 3.1 g/dL (3.4-5.0); ALBUMIN/GLOBULIN RATIO 0.9 (1.0-1.7); TOTAL BILIRUBIN 0.3 mg/dL (0.2-1.0); TOTAL PROTEIN 6.6 g/dL (6.4-8.2)
[2020-01-10 23:20] LABS: FECAL OB PT POSITIVE (NEG)
[2020-01-10] MEDS ORDERED: IV NORMAL SALINE 1,000ML 1,000 ML IV ONE (23:30)
[2020-01-11 03:45] LABS: HEMATOCRIT 31.6 % (36.0-47.0); HEMOGLOBIN 9.9 g/dL (12.0-15.5); RED BLOOD COUNT 3.92 x10^6/uL (3.50-5.40); RED CELL DISTRIBUTION WIDTH 15.6 % (11.5-14.5); WHITE BLOOD COUNT 6.2 x10^3/uL (4.0-11.0)
[2020-01-11 03:56] LABS: CALCIUM 7.8 mg/dL (8.5-10.1); CREATININE 1.2 mg/dL (0.6-1.0); GFR 52.3; POTASSIUM 3.7 mmol/L (3.5-5.1)
[2020-01-11] MEDS ORDERED: IV NORMAL SALINE 1,000ML 1,000 ML IV ONE ×4 (06:00→10:00)
--- NOTE | 2020-01-11 06:21 | EKG ---
[address] [address] Test Date: 2020-01-10 Test Time: 22:28:10 Pat Name: YOLANDA DEL CASTILLO Department: Room: Gender: F Steam Gigger: ROLY : 1940 Requested By: NANCY PLASCENCIA Order Number: [id number] Reading MD: Measurements Intervals [place] Rate: 73 P: 42 NM: 158 QRS: 28 QRSD: 82 T: 22 QT: 404 QTc: 449 Interpretive Statements SINUS RHYTHM NORMAL ECG RI6.02 No previous ECG available for comparison
[2020-01-11 07:01] LABS: HEMATOCRIT 31.6 % (36.0-47.0); HEMOGLOBIN 9.9 g/dL (12.0-15.5); RED BLOOD COUNT 3.9 x10^6/uL (3.50-5.40); RED CELL DISTRIBUTION WIDTH 15.7 % (11.5-14.5); WHITE BLOOD COUNT 5.8 x10^3/uL (4.0-11.0)
--- NOTE | 2020-01-11 07:24 | EKG ---
[address] [address] Test Date: 2020-01-11 Test Time: 06:44:39 Pat Name: YOLANDA DEL CASTILLO Department: Room: Gender: F Mental Health Professional: Sander : 1940 Requested By: ALEJANDRO KENNEDY Order Number: [id number] Reading MD: Measurements Intervals [place] Rate: 61 P: 0 TN: 148 QRS: 27 QRSD: 80 T: -12 QT: 452 QTc: 457 Interpretive Statements SINUS RHYTHM ATRIAL PREMATURE COMPLEX(ES) OTHERWISE NORMAL ECG RI6.02 No previous ECG available for comparison
[2020-01-11] MEDS ORDERED: ONDANSETRON PF 4 MG/2 ML VIAL. IVP ONE (09:15)
[2020-01-11] MEDS ORDERED: PANTOPRAZOLE IV 40 MG VIAL. IVP ONE (10:00)
[2020-01-11] MEDS ORDERED: PANTOPRAZOLE IV 40 MG VIAL. ONE (10:03)
[2020-01-11] MEDS ORDERED: PANTOPRAZOLE IV 80 MG in IV NORMAL SALINE 100ML 100 ML IV ONE (10:15)
[2020-01-11 14:05] VITALS: BP 98/55
== END 2020-01-11 14:18 | disposition short-term general hospital (02) ==
LOC: ER 21:56
DX: N93.9 Abnormal uterine and vaginal bleeding, unspecified (principal); D25.9 Leiomyoma of uterus, unspecified; N17.9 Acute kidney failure, unspecified; I25.10 Atherosclerotic heart disease of native coronary artery without angina pectoris; E78.00 Pure hypercholesterolemia, unspecified; Z03.818 Encounter for observation for suspected exposure to other biological agents ruled out; Z86.718 Personal history of other venous thrombosis and embolism; Z79.01 Long term (current) use of anticoagulants; Z90.49 Acquired absence of other specified parts of digestive tract; Z88.8 Allergy status to other drugs, medicaments and biological substances
CPT/HCPCS: 36415; 80048; 80053; 82274; 85018; 85025; 85027; 85610; 85730; 86850; 86900; 86901; 93005; 96361; 96365; 96366; 96375; 96376; 99285; C9113; J2405; J7030; U0003

== ENCOUNTER 2020-04-10 14:37 | Emergency (ER) | payer MEDICARE, OTHER ==
[~2020-04-10] VITALS: Ht 170.2 cm; Wt 92.5 kg
--- NOTE | 2020-04-10 14:59 | PHYS DOC ---
Past History Past Medical History: CAD, DVT, GI Bleed, High Cholesterol (NANCY PLASCENCIA DO) Past Surgical History: Cholecystectomy, Tonsillectomy (NANCY PLASCENCIA DO) Smoking: Non-smoker Alcohol Use: None Drug Use: None (NANCY PLASCENCIA DO) Adult General Chief Complaint Chief Complaint: NAUSEA/VOMITING/DIARRHEA HPI HPI Patient is a 80-year-old female who presents for abdominal pain. She is here with her daughter, states she lives with her 2 sons. History is obtained from a mixture of patient and daughter, both are relatively poor historians regarding patient's actual medical history. Nonetheless, patient reports eating [employer] yesterday evening approximately 6 PM. Patient reports waking up several times throughout the night with abdominal cramping and ultimately got up after being extremely nauseous around 3 AM and suffered an episode of nonbloody nonbilious emesis. Patient then suffered a subsequent episode of nonbloody nonbilious ectasis later in the morning. Generalized abdominal cramping without focal pain or radiation with associated nausea was present all day prompting her to seek care at our ER today. Her last bowel movement was yesterday, admits history of constipation. Patient has a history of cholecystectomy, no other abdominal surgeries. She denies any fever, URI-like symptoms, known COVID-19 contact, chest pain, shortness of breath, urinary symptoms, changes in bladder or bowel function. (NANCY PLASCENCIA DO) Review of Systems Review of Systems Fourteen body systems of review of systems have been reviewed. See HPI for pertinent positives and negative responses, other hodges all other systems are negative, non-pertinent or non-contributory (NANCY PLASCENCIA DO) Allergies Allergies Allergies Coded Allergies Type Severity Reaction Last Updated Verified I S O L A T I O N *CONTACT* Allergy Unknown 03/19/15 No NKMA Allergy Unknown 04/10/20 No (NANCY PLASCENCIA DO) Physical Exam Physical Exam Constitutional: Well developed, well nourished, no acute distress, non-toxic appearance. Clinically dehydrated HENT: Normocephalic, atraumatic, bilateral external ears normal, oropharynx moist, no oral exudates, nose normal. Eyes: PERRLA, EOMI, conjunctiva normal, no discharge. Neck: Normal range of motion, no tenderness, supple, no stridor. Cardiovascular: Heart rate regular, sinus rhythm, no rubs or gallops, 3+ holosystolic murmur Lungs & Thorax: Bilateral breath sounds clear to auscultation Abdomen: Bowel sounds normal, soft, mildly tender to palpation diffusely, guarding present, no rebound, no masses, no pulsatile masses. Nonsurgical abdomen, no peritoneal signs Skin: Warm, dry, no erythema, no rash. Back: No tenderness, no CVA tenderness. Extremities: No tenderness, no cyanosis, no clubbing, ROM intact, trace pedal edema bilaterally Neurologic: Alert and oriented X 3, grossly normal motor & sensory function, no focal deficits noted. Psychologic: Affect normal, judgement normal, mood normal. (NANCY PLASCENCIA DO) Current Patient Data Vital Signs Vital Signs Date Time Temp Pulse Resp B/P (MAP) Pulse Ox O2 Delivery O2 Flow Rate FiO2 04/10/20 14:39 97.7 76 17 162/96 (118) 95 Room Air Lab Results Laboratory Tests Test 04/10/20 15:28 White Blood Count 8.5 x10^3/uL (4.0-11.0) Red Blood Count 5.30 x10^6/uL (3.50-5.40) Hemoglobin 11.1 g/dL (12.0-15.5) Hematocrit 36.7 % (36.0-47.0) Mean Corpuscular Volume 69 fL (79-100) Mean Corpuscular Hemoglobin 21 pg (25-35) Mean Corpuscular Hemoglobin Concent 30 g/dL (31-37) Red Cell Distribution Width 19.0 % (11.5-14.5) Platelet Count 303 x10^3/uL (140-400) Neutrophils (%) (Auto) 85 % (31-73) Lymphocytes (%) (Auto) 9 % (24-48) Monocytes (%) (Auto) 5 % (0-9) Eosinophils (%) (Auto) 0 % (0-3) Basophils (%) (Auto) 1 % (0-3) Neutrophils # (Auto) 7.2 x10^3uL (1.8-7.7) Lymphocytes # (Auto) 0.7 x10^3/uL (1.0-4.8) Monocytes # (Auto) 0.4 x10^3/uL (0.0-1.1) Eosinophils # (Auto) 0.0 x10^3/uL (0.0-0.7) Basophils # (Auto) 0.1 x10^3/uL (0.0-0.2) Platelet Estimate Adequate (ADEQUATE) Hypochromasia Mod Anisocytosis Slight Microcytosis Mod Sodium Level 139 mmol/L (136-145) Potassium Level 4.1 mmol/L (3.5-5.1) Chloride Level 101 mmol/L (98-107) Carbon Dioxide Level 27 mmol/L (21-32) Anion Gap 11 (6-14) Blood Urea Nitrogen 12 mg/dL (7-20) Creatinine 1.2 mg/dL (0.6-1.0) Estimated GFR (Cockcroft-Gault) 52.2 BUN/Creatinine Ratio 10 (6-20) Glucose Level 128 mg/dL (70-99) Calcium Level 9.7 mg/dL (8.5-10.1) Total Bilirubin 0.6 mg/dL (0.2-1.0) Aspartate Amino Transf (AST/SGOT) 32 U/L (15-37) Alanine Aminotransferase (ALT/SGPT) 18 U/L (14-59) Alkaline Phosphatase 102 U/L (46-116) Creatine Kinase 138 U/L (26-192) Troponin I Quantitative < 0.017 ng/mL (0-0.055) Total Protein 7.6 g/dL (6.4-8.2) Albumin 3.8 g/dL (3.4-5.0) Albumin/Globulin Ratio 1.0 (1.0-1.7) (NANCY PLASCENCIA DO) EKG EKG EKG ordered and interpreted by myself 1539 hrs. as sinus rhythm at 72 bpm, un remarkable intervals, no axis deviation, T wave inversions in leads III and aVF, no STEMI (NANCY PLASCENCIA DO) Radiology/Procedures Radiology/Procedures PROCEDURE: CT ABD PELV W/ IV CONTRST ONLY Exam: CT of abdomen and pelvis with contrast INDICATION: Left lower quadrant abdominal pain TECHNIQUE: Sequential axial images through the abdomen and pelvis obtained following the administration of 60 mL of Isovue-370 IV contrast. Sagittal and coronal reformatted images were reconstructed from the axial data and reviewed. Comparisons: None FINDINGS: Heart size is normal. No pericardial effusion. Strandy opacities at dependent portion lungs likely representing atelectasis. No pleural Mild intrahepatic or ductal dilatation. Gallbladder surgically absent. Spleen, pancreas, and adrenals are unremarkable. Gallbladder surgically absent. No perinephric inflammation or hydronephrosis. No renal or ureteral calculi are identified. Bladder is distended and appears thin-walled. Uterus is nonenlarged. No abnormal adnexal mass. Extensive diverticulosis noted in the sigmoid colon without evidence of acute diverticulitis. There is dilated loops of small bowel approximately with wall thickening involving a loop of bowel in midabdomen with abrupt transition to decompressed bowel just distal to this area. Trace free fluid in the pelvis. No free intra-abdominal air. Abdominal aorta has a normal course and caliber. Abdominal vasculature is patent. No enlarged abdominal lymph nodes are identified. No suspicious osseous lesions or acute fractures. IMPRESSION: 1. Findings a small bowel obstruction with abrupt transition in the mid lower abdomen. 2. Diverticulosis without evidence of acute diverticulitis. Exposure: One or more of the following in the visualized dose reduction techniques were utilized for this examination: 1. Automated exposure control 2. Adjustment of the MA and/or KV according to patient size 3. Use of iterative of reconstructive technique Electronically signed by: Christiane Arndt MD (04/10/2020 6:18 PM) [facility] (NANCY PLASCENCIA DO) Heart Score HEART Score for Chest Pain: HEART Score for Chest Pain Response (Comments) Value History Slighlty/Non-Suspicious 0 ECG Normal 0 Age < 45 0 Risk Factors No Risk Factors 0 Troponin < Normal Limit 0 Total 0 Risk Factors: Risk Factors: DM, Current or recent (<one month) smoker, HTN, HLP, family history of CAD, obesity. Risk Scores: Risk Factors: DM, Current or recent (<one month) smoker, HTN, HLP, family history of CAD, obesity. (NANCY PLASCENCIA DO) Course & Med Decision Making Course & Med Decision Making Pertinent Labs and Imaging studies reviewed. (See chart for details) Discussed most likely diagnosis of SBO with patient and daughter. I discussed need for hospital admission and they were amenable. Due to high volume in surrounding areas, patient still pending placement at the time of my shift's end. I discussed case with new physician. Please defer to Dr. Marin's documentation regarding future medical activity/care. (NANCY PLASCENCIA DO) Course & Med Decision Making Patient CT scan does show small bowel obstruction. I talked with Dr. Benz at [facility] and he would like patient transferred there for further care and likely surgery. I spoke with the hospitalist, Dr. Mcallister and he has accepted the patient for transfer. She will go by ambulance. (DENISE MARIN DO) Dragon Disclaimer Dragon Disclaimer This electronic medical record was generated, in whole or in part, using a voice recognition dictation system. (NANCY PLASCENCIA DO) Departure Departure: Impression: Primary Impression: SBO (small bowel obstruction) Disposition: 02 DC/TRF OTHER SHORT TERM HOS (general acute hospital) Admitting Physician: Other ([email or web address]) (NANCY PLASCENCIA DO) Condition: STABLE Referrals: LUIS ENRIQUE MAR (PCP) NANCY PLASCENCIA DO Apr 10, 2020 14:59 DENISE MARIN DO Apr 10, 2020 23:10
[2020-04-10] MEDS ORDERED: IV NORMAL SALINE 500ML 500 ML IV ONE (15:15)
[2020-04-10 15:58] LABS: BASO # 0.1 x10^3/uL (0.0-0.2); BASO % 1 % (0-3); EOS % 0 % (0-3); HEMATOCRIT 36.7 % (36.0-47.0); HEMOGLOBIN 11.1 g/dL (12.0-15.5); LYMPH # 0.7 x10^3/uL (1.0-4.8); LYMPH % 9 % (24-48); MEAN CORPUSCULAR HEMOGLOBIN 21 pg (25-35); MEAN CORPUSCULAR HGB CONC 30 g/dL (31-37); MEAN CORPUSCULAR VOLUME 69 fL (79-100); MONO # 0.4 x10^3/uL (0.0-1.1); MONO % 5 % (0-9); NEUT # 7.2 x10^3uL (1.8-7.7); NEUT % 85 % (31-73); PLATELET COUNT 303 x10^3/uL (140-400); WHITE BLOOD COUNT 8.5 x10^3/uL (4.0-11.0)
[2020-04-10] MEDS ORDERED: ONDANSETRON PF 4 MG/2 ML VIAL. IVP ONE ×2 (16:00→19:30)
[2020-04-10 16:05] LABS: CALCIUM 9.7 mg/dL (8.5-10.1); CREATININE 1.2 mg/dL (0.6-1.0); GFR 52.2; POTASSIUM 4.1 mmol/L (3.5-5.1)
[2020-04-10 16:12] LABS: ALBUMIN 3.8 g/dL (3.4-5.0); TOTAL BILIRUBIN 0.6 mg/dL (0.2-1.0); TOTAL PROTEIN 7.6 g/dL (6.4-8.2)
[2020-04-10 17:31] LABS: ANISOCYTOSIS SLIGHT; HYPOCHROMIA MOD; MICROCYTOSIS MOD; PLT ESTIMATE ADEQUATE (ADEQUATE)
[2020-04-10] MEDS ORDERED: IOHEXOL 300 MG/ML 75 ML VIAL. IV ONE (17:45)
--- NOTE | 2020-04-10 18:21 | RAD ---
Exam: CT of abdomen and pelvis with contrast INDICATION: Left lower quadrant abdominal pain TECHNIQUE: Sequential axial images through the abdomen and pelvis obtained following the administration of 60 mL of Isovue-370 IV contrast. Sagittal and coronal reformatted images were reconstructed from the axial data and reviewed. Comparisons: None FINDINGS: Heart size is normal. No pericardial effusion. Strandy opacities at dependent portion lungs likely representing atelectasis. No pleural Mild intrahepatic or ductal dilatation. Gallbladder surgically absent. Spleen, pancreas, and adrenals are unremarkable. Gallbladder surgically absent. No perinephric inflammation or hydronephrosis. No renal or ureteral calculi are identified. Bladder is distended and appears thin-walled. Uterus is nonenlarged. No abnormal adnexal mass. Extensive diverticulosis noted in the sigmoid colon without evidence of acute diverticulitis. There is dilated loops of small bowel approximately with wall thickening involving a loop of bowel in midabdomen with abrupt transition to decompressed bowel just distal to this area. Trace free fluid in the pelvis. No free intra-abdominal air. Abdominal aorta has a normal course and caliber. Abdominal vasculature is patent. No enlarged abdominal lymph nodes are identified. No suspicious osseous lesions or acute fractures. IMPRESSION: 1. Findings a small bowel obstruction with abrupt transition in the mid lower abdomen. 2. Diverticulosis without evidence of acute diverticulitis. Exposure: One or more of the following in the visualized dose reduction techniques were utilized for this examination: 1. Automated exposure control 2. Adjustment of the MA and/or KV according to patient size 3. Use of iterative of reconstructive technique Electronically signed by: Christiane Arndt MD (04/10/2020 6:18 PM) [facility]
[2020-04-10 18:35] VITALS: BP 111/61
[2020-04-10] MEDS ORDERED: MORPHINE SULFATE 2 MG/ML DISP.SYRIN. IV ONE (18:45)
[2020-04-10] MEDS ORDERED: MORPHINE SULFATE 4 MG/ML DISP.SYRIN. IV ONE (19:30)
--- NOTE | 2020-04-12 13:24 | EKG ---
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
== END 2020-04-10 23:10 | disposition short-term general hospital (02) ==
LOC: ER 14:37
DX: K56.609 Unspecified intestinal obstruction, unspecified as to partial versus complete obstruction (principal); R11.2 Nausea with vomiting, unspecified; I25.10 Atherosclerotic heart disease of native coronary artery without angina pectoris; E78.00 Pure hypercholesterolemia, unspecified; Z86.718 Personal history of other venous thrombosis and embolism; Z90.49 Acquired absence of other specified parts of digestive tract; Z88.8 Allergy status to other drugs, medicaments and biological substances
CPT/HCPCS: 36415; 74177; 80053; 82550; 83605; 84484; 85025; 93005; 96374; 96375; 99285; J2270; J2405; J7040; Q9967; 96361

== ENCOUNTER 2020-05-12 18:27 | Emergency (ER) | payer MEDICARE, OTHER ==
[~2020-05-12] VITALS: Ht 167.6 cm; Wt 81.0 kg
--- NOTE | 2020-05-12 18:34 | PHYS DOC ---
Past History Past Medical History: CAD, CHF, CVA, Dementia, DVT, GI Bleed, High Cholesterol, Hypertension, TIA Past Surgical History: Cholecystectomy, Tonsillectomy Past Surgical History Endarterectomy Smoking: Non-smoker Alcohol Use: None Drug Use: None General Adult HPI: HPI: ".. Last week during physical therapy.. I got dizzy and had to drink some orange juice.. I did vomit....they family wanted me to get checked out.. Patient is a 80 year old female who presents with above hx and complaints dizziness, weakness, vomiting, since last week. Onset of symptoms occurred du [facility] physical therapy.. Patient denies any changes in meds. Patient denies any recent travel or specific ill contacts. Patient normally follows with Zelda for care. Patient has past medical history of coronary artery disease, DVTs, GI bleeds, high cholesterol, peripheral vascular disease, and arthritis. Patient has a past significant surgical history of left carotid endarterectomy, tonsillectomy, sigmoid scopes for diverticulitis, cholecystectomy, and bilateral cataract extraction. Pt has had left ankle fracture open reduction and internal fixation. Patient follows with Zelda for care. No history recent travel. No specific ill contacts. Did have a recent abdomen surgery for small bowel obstruction at [facility] 04/10/20. admission. Pt currently getting PT from that post surgical weakness admission.. Pt. daughter Cherie- [phone]. Review of Systems: Review of Systems: Constitutional: Denies fever or chills Eyes: Denies change in visual acuity HENT: Denies nasal congestion or sore throat Respiratory: Hx of shortness of breath Cardiovascular: Denies chest pain or edema GI: Complains of nausea, vomiting, : Denies dysuria Musculoskeletal: Denies back pain or joint pain Integument: Denies rash Neurologic: Complains of generalized weakness., Complaints of dizziness Endocrine: Denies polyuria or polydipsia Lymphatic: Denies swollen glands Psychiatric: Denies depression or anxiety Family History: Family History: Noncontributory to presentation Current Medications: Current Meds: See nursing for home meds Allergies: Allergies: Allergies Coded Allergies Type Severity Reaction Last Updated Verified I S O L A T I O N *CONTACT* Allergy Unknown 03/19/15 No NKMA Allergy Unknown 04/10/20 No Physical Exam: PE: Constitutional: no acute distress, non-toxic appearance. [] HENT: Normocephalic, atraumatic, bilateral external ears normal, oropharynx mois t, no oral exudates, nose normal. [] Eyes: PERRLA, EOMI, conjunctiva normal, no discharge. [] Neck: Normal range of motion, no tenderness, supple, no stridor. Left endarterectomy scar Cardiovascular: Tachycardia Heart rate regular rhythm, no murmur [] PMI to left Lungs & Thorax: Bilateral breath sounds equal apex on auscultation [] Abdomen: Bowel sounds normal, soft, no tenderness, no masses, no pulsatile masses. Old surgery scars. New midline surgery scar Skin: Warm, dry, no erythema, no rash. Poor turgor Back: No tenderness, no CVA tenderness. [] Extremities: No tenderness, no cyanosis, no clubbing, ROM intact, no edema. Left lower leg weakness since previous CVA . Neurologic: Alert and oriented X 3, moves all extremities on request, has decreased sensory feet, left-sided weakness-chronic, no new focal deficits n oted. Arthritic changes. Peripheral neuropathy Psychologic: Affect normal, judgement normal, mood normal. [] EKG: EKG: My interpretation EKG shows a sinus rhythm at 85 bpm. Does have bimodal P waves, left axis, LVH, prolonged QT interval of 422 ms and a QTc interval of 508 ms. Will obtain most recent EKG for comparison .[] 05/12/2020 1857 minutes There is an overall morphology change of EKG tonight as compared to the EKG completed 04/10/2020 Radiology/Procedures: Radiology/Procedures: [address] [address] IMAGING REPORT Signed PATIENT: YOLANDA DEL CASTILLO ACCOUNT: [id number] : 1940 LOCATION: ER AGE: 80 SEX: F EXAM STATUS: REG ER ORD. PHYSICIAN: MICHELLE BAJWA MD REASON: Abdomen pain, dizziness PROCEDURE: ACUTE ABDOMEN SERIES XR ABDOMEN COMP ACUTE INDICATION: Reason: Abdomen pain, dizziness / Spl. Instructions: / History: . COMPARISON STUDY: None. FINDINGS: Lungs: Normal lung volume. No pulmonary mass or consolidation. The tracheobronchial tree and hilar structures are normal. Pleura: No pleural effusion or pneumothorax. Heart and Mediastinum: The cardiomediastinal silhouette is normal. Tortuous atherosclerotic aorta. Abdomen: Nonobstructive bowel gas pattern. No free air. IMPRESSION: 1. No consolidation. 2. Nonobstructive bowel gas pattern. Electronically signed by: Sal Flowers MD (05/12/2020 7:53 PM) [facility] DICTATED AND SIGNED BY: SAL FLOWERS MD DATE: 05/12/201950 CC: MICHELLE BAJWA MD; LUIS ENRIQUE MAR ~MTH0 0 [][place] [address] IMAGING REPORT Signed PATIENT: YOLANDA DEL CASTILLO ACCOUNT: [id number] : 1940 LOCATION: ER AGE: 80 SEX: F EXAM STATUS: REG ER ORD. PHYSICIAN: MICHELLE BAJWA MD REASON: dizzy, hx prior CVA, TIA, accel. htn PROCEDURE: CT HEAD WO CONTRAST CT HEAD/BRAIN WO Date: 05/12/2020 7:21 PM Clinical Indication: Reason: dizzy, hx prior CVA, TIA, accel. htn / Spl. Instructions: / History: Comparison: None. Technique: 5 mm axial tomographic images were obtained of the head without contrast. These were viewed on brain and bone windows. One or more of the following dose reduction techniques were utilized: Automated exposure control (A EC), Adjustment of mA and/or kV according to patient size, Use of iterative reconstruction technique such as ASiR, CT scan done according to ALARA and image gently/image wisely Findings: Moderate generalized cerebral and cerebellar volume loss. Moderate nonspecific periventricular hypoattenuation, most commonly seen with chronic small vessel ischemic disease. Calcified atherosclerosis of the bilateral cavernous and paraclinoid internal carotid arteries and intracranial vertebral arteries. No intra- or extra-axial mass or fluid collection. No acute hemorrhage. The ventricles are normal in size, shape, and morphology. The bermeo-white matter junction is normal. The subarachnoid cisterns are patent. The visualized paranasal sinuses are normal. The visualized portions of the orbits and globes are normal. The mastoid air cells are clear. The drilling foreman topogram shows no lytic lesion or fracture. Impression: No acute intracranial process. Moderate cerebral volume loss. Moderate chronic small vessel ischemic disease. Electronically signed by: Sal Flowers MD (05/12/2020 7:48 PM) [facility] DICTATED AND SIGNED BY: SAL FLOWERS MD DATE: 05/12/201946 CC: MICHELLE BAJWA MD; LUIS ENRIQUE MAR ~MTH0 0 Heart Score: HEART Score for Chest Pain: HEART Score for Chest Pain Response (Comments) Value History Moderately Suspicious 1 ECG Nonspecific Repolarizatio 1 Age > 65 2 Risk Factors 1 or 2 Risk Factors 1 Troponin < Normal Limit 0 Total 5 Risk Factors: Risk Factors: DM, Current or recent (<one month) smoker, HTN, HLP, family history of CAD, obesity. Risk Scores: Score 0 - 3: 2.5% MACE over next 6 weeks - Discharge Home Score 4 - 6: 20.3% MACE over next 6 weeks - Admit for Clinical Observation Score 7 - 10: 72.7% MACE over next 6 weeks - Early Invasive Strategies Course & Med Decision Making: Course & Med Decision Making Pertinent Labs and Imaging studies reviewed. (See chart for details) Discussed labs and tx. plan with DaughterNandini Crespo [phone]. Daughters request pt. be transfer to [facility]. States her cardiology and surgery are there at [facility]. Impression: 1. Dizzy 2. Accelerated hypertension initial readings systolic 208/111 3. Hypomagnesium 1.6 4. Constipation 5. CHF- BMP. 1586 6. Anemia 10.1 Hgb, microcytic hypochromic 68/20 7. Elevated CRP 15.3 [] Dragon Disclaimer: Dragon Disclaimer: This electronic medical record was generated, in whole or in part, using a voice recognition dictation system. Departure Departure: Referrals: LUIS ENRIQUE MAR (PCP) Draglatricia Disclaimer This chart was dictated in whole or in part using Voice Recognition software in a busy, high-work load, and often noisy Emergency Department environment. It may contain unintended and wholly unrecognized errors or omissions. MICHELLE BAJWA MD May 12, 2020 18:34
[2020-05-12] MEDS ORDERED: cloNIDine HCL 0.1 MG TABLET PO ONE (18:45)
[2020-05-12] MEDS ORDERED: cloNIDine TTS-2 1 PATCH PATCH TD ONE (18:45)
[2020-05-12] MEDS ORDERED: IV RINGERS SOLUTION,LACTATED 1,000 ML IV SCH (18:45)
[2020-05-12] MEDS ORDERED: ONDANSETRON PF 4 MG/2 ML VIAL. IVP ONE (19:00)
--- NOTE | 2020-05-12 19:06 | EKG ---
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
[2020-05-12 19:39] LABS: BASO # 0.1 x10^3/uL (0.0-0.2); BASO % 1 % (0-3); EOS # 0.1 x10^3/uL (0.0-0.7); EOS % 2 % (0-3); HEMOGLOBIN 10.1 g/dL (12.0-15.5); LYMPH # 1.9 x10^3/uL (1.0-4.8); LYMPH % 31 % (24-48); MEAN CORPUSCULAR HEMOGLOBIN 20 pg (25-35); MEAN CORPUSCULAR HGB CONC 30 g/dL (31-37); MEAN CORPUSCULAR VOLUME 68 fL (79-100); MONO # 0.5 x10^3/uL (0.0-1.1); MONO % 9 % (0-9); NEUT # 3.5 x10^3uL (1.8-7.7); NEUT % 57 % (31-73); PLATELET COUNT 292 x10^3/uL (140-400); RED CELL DISTRIBUTION WIDTH 20.9 % (11.5-14.5); WHITE BLOOD COUNT 6.1 x10^3/uL (4.0-11.0)
--- NOTE | 2020-05-12 19:50 | RAD ---
CT HEAD/BRAIN WO Date: 05/12/2020 7:21 PM Clinical Indication: Reason: dizzy, hx prior CVA, TIA, accel. htn / Spl. Instructions: / History: Comparison: None. Technique: 5 mm axial tomographic images were obtained of the head without contrast. These were view ed on brain and bone windows. One or more of the following dose reduction techniques were utilized: A utomated exposure control (AEC), Adjustment of mA and/or kV according to patient size, Use of iterati ve reconstruction technique such as ASiR, CT scan done according to ALARA and image gently/image hodges ly Findings: Moderate generalized cerebral and cerebellar volume loss. Moderate nonspecific periventricular hypoat tenuation, most commonly seen with chronic small vessel ischemic disease. Calcified atherosclerosis o f the bilateral cavernous and paraclinoid internal carotid arteries and intracranial vertebral arteri es. No intra- or extra-axial mass or fluid collection. No acute hemorrhage. The ventricles are normal in size, shape, and morphology. The bermeo-white matter junction is normal. The subarachnoid cisterns are patent. The visualized paranasal sinuses are normal. The visualized portions of the orbits and globes are no rmal. The mastoid air cells are clear. The sed high school teacher topogram shows no lytic lesion or fracture. Impression: No acute intracranial process. Moderate cerebral volume loss. Moderate chronic small vessel ischemic disease. Electronically signed by: Nelson Flowers MD (05/12/2020 7:48 PM) [facility]
[2020-05-12 19:52] LABS: CALCIUM 8.8 mg/dL (8.5-10.1); CREATININE 0.9 mg/dL (0.6-1.0); GFR 72.7; POTASSIUM 3.5 mmol/L (3.5-5.1)
--- NOTE | 2020-05-12 19:56 | RAD ---
XR ABDOMEN COMP ACUTE INDICATION: Reason: Abdomen pain, dizziness / Spl. Instructions: / History: . COMPARISON STUDY: None. FINDINGS: Lungs: Normal lung volume. No pulmonary mass or consolidation. The tracheobronchial tree and hilar st ructures are normal. Pleura: No pleural effusion or pneumothorax. Heart and Mediastinum: The cardiomediastinal silhouette is normal. Tortuous atherosclerotic aorta. Abdomen: Nonobstructive bowel gas pattern. No free air. IMPRESSION: 1. No consolidation. 2. Nonobstructive bowel gas pattern. Electronically signed by: Nelson Flowers MD (05/12/2020 7:53 PM) [facility]
[2020-05-12 20:05] LABS: ALBUMIN 3.1 g/dL (3.4-5.0); C REACTIVE PROTEIN 15.3 mg/L (0-3.3); DIRECT BILIRUBIN 0.1 mg/dL (0.0-0.2); MAGNESIUM 1.6 mg/dL (1.8-2.4); TOTAL BILIRUBIN 0.4 mg/dL (0.2-1.0); TOTAL PROTEIN 6.9 g/dL (6.4-8.2)
[2020-05-12] MEDS ORDERED: MAGNESIUM HYDROXIDE 2,400 MG/30 ML ORAL.SUSP. PO ONE (20:15)
[2020-05-12] MEDS ORDERED: FUROSEMIDE 40 MG/4 ML VIAL IVP ONE (20:15)
[2020-05-12 22:03] LABS: POIKILOCYTOSIS SLIGHT
[2020-05-12 22:04] LABS: ANISOCYTOSIS MOD; HYPOCHROMIA MARKED; MICROCYTOSIS MOD
[2020-05-12 22:05] LABS: PLT ESTIMATE ADEQUATE (ADEQUATE)
[2020-05-12 22:15] VITALS: BP 93/48
== END 2020-05-12 22:35 | disposition short-term general hospital (02) ==
LOC: ER 18:27
DX: I11.0 Hypertensive heart disease with heart failure (principal); I50.9 Heart failure, unspecified; E83.42 Hypomagnesemia; K59.00 Constipation, unspecified; D64.9 Anemia, unspecified; R79.82 Elevated C-reactive protein (CRP); I25.10 Atherosclerotic heart disease of native coronary artery without angina pectoris; F03.90 Unspecified dementia, unspecified severity, without behavioral disturbance, psychotic disturbance, mood disturbance, and anxiety; E78.00 Pure hypercholesterolemia, unspecified; Z86.718 Personal history of other venous thrombosis and embolism; Z86.73 Personal history of transient ischemic attack (TIA), and cerebral infarction without residual deficits; Z88.8 Allergy status to other drugs, medicaments and biological substances
CPT/HCPCS: 36415; 70450; 74022; 80048; 80076; 82550; 83690; 83735; 83880; 84443; 84484; 85025; 85379; 85610; 85730; 86140; 93005; 96361; 96374; 99285; J2405; J7120

== ENCOUNTER → 2020-06-18 | Outpatient (CLI) | payer MEDICARE, OTHER ==
--- NOTE | 2020-06-19 05:04 | RAD ---
EXAM: XR EXAM OF ANKLE 2V 06/18/2020 6:07 PM CLINICAL INDICATION: Bilateral ankle pain COMPARISON: None TECHNIQUE: 2 views of the right and left ankle. FINDINGS: Left ankle: There is a plate and screws traversing an old healed distal fibular fracture and 2 screws traversing an old healed medial malleolar fracture. Hardware is intact. Evidence of loosening. There is no acute fracture. Alignment is normal. Ankle mortise is symmetric and talar dome is intact. Join t spaces are maintained. No focal soft tissue abnormality. Right ankle: No acute fracture or malalignment. Ankle mortise is symmetric and talar dome is intact. Joint spaces are maintained. Small plantar calcaneal enthesophyte. No focal soft tissue abnormality. IMPRESSION: 1. No acute abnormality or degenerative joint disease of either ankle. 2. Old internally fixed bimalleolar fractures in the left ankle without complication. Electronically signed by: Columba Khan MD (06/19/2020 5:02 AM) [id number]
== END ==
LOC: PMG 18:01
PROVIDERS: ATTEND Physician Assistant
DX: M77.31 Calcaneal spur, right foot (principal)
CPT/HCPCS: 73600

== ENCOUNTER → 2020-10-07 | Outpatient (CLI) | payer MEDICARE, OTHER ==
--- NOTE | 2020-10-07 17:14 | RAD ---
Two-view study of the cervical spine Clinical indications: Neck pain. FINDINGS: There is no acute fracture evident. There is no discitis or lytic process or prevertebral s oft tissue swelling is evident. There is a grade 1 anterolisthesis of C4-5 measuring 3 mm. There is m ild degenerative disc space narrowing and mild degenerative endplate spurring at C3-4. There is moder ate degenerative disc space narrowing and moderate endplate spurring at C5-6 and C6-7. There is degen erative facet arthropathy from C3-4 through C6-7. IMPRESSION: Degenerative cervical spondylosis. Grade 1 anterolisthesis of C4-5. This latter finding m ay be secondary to degenerative facet arthropathy which is present. This may result in spinal canal s tenosis. Electronically signed by: Tayo Mars MD (10/07/2020 5:12 PM) [id number]
== END ==
LOC: PMG 15:27
PROVIDERS: ATTEND Physician Assistant
DX: M47.812 Spondylosis without myelopathy or radiculopathy, cervical region (principal); M43.12 Spondylolisthesis, cervical region; M48.02 Spinal stenosis, cervical region
CPT/HCPCS: 72040

== ENCOUNTER → 2021-06-04 | Outpatient (CLI) | payer MEDICARE, OTHER ==
[2021-06-04 13:44] LABS: BASO % 0 % (0-3); EOS # 0.1 x10^3/uL (0.0-0.7); EOS % 1 % (0-3); HEMATOCRIT 36.8 % (36.0-47.0); HEMOGLOBIN 11.3 g/dL (12.0-15.5); LYMPH # 1.9 x10^3/uL (1.0-4.8); LYMPH % 22 % (24-48); MEAN CORPUSCULAR HEMOGLOBIN 23 pg (25-35); MEAN CORPUSCULAR HGB CONC 31 g/dL (31-37); MEAN CORPUSCULAR VOLUME 73 fL (79-100); MONO # 0.6 x10^3/uL (0.0-1.1); MONO % 7 % (0-9); NEUT # 6.2 x10^3uL (1.8-7.7); NEUT % 71 % (31-73); PLATELET COUNT 256 x10^3/uL (140-400); RED BLOOD COUNT 5.04 x10^6/uL (3.50-5.40); RED CELL DISTRIBUTION WIDTH 19.4 % (11.5-14.5); WHITE BLOOD COUNT 8.8 x10^3/uL (4.0-11.0)
[2021-06-04 14:01] LABS: ALBUMIN 3.6 g/dL (3.4-5.0); CALCIUM 9.2 mg/dL (8.5-10.1); GFR 64.2; POTASSIUM 4.1 mmol/L (3.5-5.1); TOTAL BILIRUBIN 0.5 mg/dL (0.2-1.0); TOTAL PROTEIN 7.1 g/dL (6.4-8.2)
--- NOTE | 2021-06-04 17:29 | RAD ---
Chest PA and lateral: Reason for examination: Dyspnea and wheezing. Comparison is made to previous study dated 07/07/2018. The heart size is normal. Mediastinum is unremarkable. Lung berry are clear. No acute bony abnormali ties are seen. Impression: No acute cardiopulmonary disease. Electronically signed by: Mary Walker MD (06/04/2021 5:27 PM) [id number]
[2021-06-04 20:26] LABS: ANISOCYTOSIS MOD; HYPOCHROMIA MOD; MICROCYTOSIS SLIGHT; PLT ESTIMATE ADEQUATE (ADEQUATE)
== END ==
LOC: RAD 13:03
PROVIDERS: ATTEND Physician Assistant
DX: R06.00 Dyspnea, unspecified (principal); R06.2 Wheezing
CPT/HCPCS: 36415; 71046; 80053; 83880; 85025; 85379